=== PATIENT | male | born 1980 | race Caucasian/White ===

== ENCOUNTER 2018-03-20 12:11 | Emergency (ER) | payer OTHER ==
[~2018-03-20] VITALS: Ht 180.3 cm; Wt 95.2 kg
[~2018-03-20 12:11] MED LIST: HYDACE10B PO
[2018-03-20] MEDS ORDERED: Bactrim Ds Tab1 EACH PO ×2 (14:08→14:21)
[2018-03-20] MEDS ORDERED: Norco 5-325 Ta1 EACH PO (14:08)
== END 2018-03-20 14:43 | disposition home or self-care (01) ==
LOC: ER 12:11
DX: S21.112A Laceration without foreign body of left front wall of thorax without penetration into thoracic cavity, initial encounter (principal); F17.200 Nicotine dependence, unspecified, uncomplicated; W17.89XA Other fall from one level to another, initial encounter
CPT/HCPCS: 12002; 71045; 71260; 99284-25; Q9967

== ENCOUNTER 2024-07-15 07:08 | Day surgery (SDC) | payer OTHER ==
[~2024-07-15] VITALS: Ht 180.3 cm; Wt 94.7 kg
[~2024-07-15 07:08] MED LIST changes: +Bactrim Ds Tab1 EACH PO; +Norco 5-325 Ta1 EACH PO
[2024-07-15] MEDS ORDERED: Hair, Skin & N1 EACH PO (07:43)
[2024-07-15] MEDS ORDERED: Ondansetron HCl 2 MG / ML 2ML Vial ONE (08:12)
[2024-07-15] MEDS ORDERED: propofoL 40 ML IV ONE (08:13)
[2024-07-15] MEDS ORDERED: Lactated Ringer's 1,000 ML IV ONE ×2 (08:14→08:27)
[2024-07-15] MEDS ORDERED: propofoL 20 ML IV ONE (09:00)
[2024-07-15 09:46] VITALS: BP 108/63
== END 2024-07-15 09:42 | disposition home or self-care (01) ==
LOC: ORSCSDS 07:08
PROVIDERS: Surgery
PROC: 0DBL8ZX Excision of Transverse Colon, Via Natural or Artificial Opening Endoscopic, Diagnostic (ICD-10-PCS; principal; 2024-07-15 08:30)
PROC: 0DBN8ZX Excision of Sigmoid Colon, Via Natural or Artificial Opening Endoscopic, Diagnostic (ICD-10-PCS; principal; 2024-07-15 08:30)
PROC: 0DBM8ZX Excision of Descending Colon, Via Natural or Artificial Opening Endoscopic, Diagnostic (ICD-10-PCS; principal; 2024-07-15 08:30)
PROC: 0DBK8ZX Excision of Ascending Colon, Via Natural or Artificial Opening Endoscopic, Diagnostic (ICD-10-PCS; principal; 2024-07-15 08:30)
DX: Z12.11 Encounter for screening for malignant neoplasm of colon (principal); D12.2 Benign neoplasm of ascending colon; D12.3 Benign neoplasm of transverse colon; D12.4 Benign neoplasm of descending colon; D12.5 Benign neoplasm of sigmoid colon; D37.4 Neoplasm of uncertain behavior of colon; K57.30 Diverticulosis of large intestine without perforation or abscess without bleeding; K64.8 Other hemorrhoids; Z80.0 Family history of malignant neoplasm of digestive organs; F41.9 Anxiety disorder, unspecified; F17.210 Nicotine dependence, cigarettes, uncomplicated
CPT/HCPCS: 88305; J2405; J2704; J7120